=== PATIENT | female | born 1995 | race Caucasian/White ===

== ENCOUNTER 2018-08-14 07:52 | Emergency (ER) | payer MEDICAID ==
[~2018-08-14] VITALS: Ht 154.9 cm; Wt 77.0 kg
[2018-08-14 07:54] VITALS: BP 139/78
[2018-08-14 08:36] LABS: CLARITY URINE CLEAR (CLEAR); COLOR URINE YELLOW (YELLOW); KETONES URINE 1+ (NEGATIVE); LEUKOCYTE ESTERASE URINE TRACE (NEGATIVE); NITRITE URINE POSITIVE (NEGATIVE); OCCULT BLOOD URINE NEGATIVE (NEGATIVE); PROTEIN URINE NEGATIVE (NEGATIVE); SPECIFIC GRAVITY URINE 1.042 (1.005-1.030); UROBILINOGEN URINE 0.2 E.U./dL (0.2-1.0)
== END 2018-08-14 09:20 | disposition home or self-care (01) ==
LOC: ER 07:52
DX: R30.0 Dysuria (principal)
CPT/HCPCS: 81025; 99283

== ENCOUNTER 2019-04-30 16:26 | Emergency (ER) | payer MEDICAID, OTHER ==
[~2019-04-30] VITALS: Ht 157.5 cm; Wt 82.0 kg
[2019-04-30 16:58] VITALS: BP 133/79
[2019-04-30 18:21] LABS: CLARITY URINE CLOUDY (CLEAR); COLOR URINE YELLOW (YELLOW); KETONES URINE NEGATIVE (NEGATIVE); LEUKOCYTE ESTERASE URINE TRACE (NEGATIVE); NITRITE URINE POSITIVE (NEGATIVE); OCCULT BLOOD URINE NEGATIVE (NEGATIVE); PROTEIN URINE NEGATIVE (NEGATIVE); SPECIFIC GRAVITY URINE 1.022 (1.005-1.030); UROBILINOGEN URINE 0.2 E.U./dL (0.2-1.0)
[2019-05-03 04:09] LABS: CHLAMYDIA TRACHOMATIS NAA Negative (Negative); NEISSERIA GONORRHOEAE NAA Negative (Negative)
== END 2019-04-30 18:56 | disposition home or self-care (01) ==
LOC: ER 16:26
DX: N89.8 Other specified noninflammatory disorders of vagina (principal); R20.8 Other disturbances of skin sensation; E11.9 Type 2 diabetes mellitus without complications
CPT/HCPCS: 81003; 81025; 87210; 87491; 87591; 99283

== ENCOUNTER 2022-03-10 00:48 | Emergency (ER) | payer OTHER ==
[~2022-03-10] VITALS: Ht 154.9 cm; Wt 89.1 kg
[2022-03-10 06:45] LABS: CHLORIDE 97 mEq/L (98-107)
[2022-03-10 06:46] LABS: HCG SCREEN NEGATIVE
[2022-03-10 06:47] LABS: BASOPHILS % 0.3 % (0.0-2.0); EOSINOPHILS % 0.2 % (0.0-5.0); HEMATOCRIT. 38.3 % (36.0-48.0); HEMOGLOBIN. 12.8 g/dL (12.0-16.0); LYMPHOCYTES % 17.2 % (20.0-50.0); MEAN CORPUSCULAR HEMOGLOBIN 28.8 pg (28.0-32.0); MEAN CORPUSCULAR VOLUME 85.9 fL (81.0-99.0); MEAN PLATELET VOLUME 9.6 fl (7.4-10.4); MONOCYTES % 11.2 % (2.0-8.0); NEUTROPHILS % 71.1 % (40.0-76.0); PLATELET 231 x1000/uL (130-400); RED BLOOD CELL COUNT 4.46 mill/uL (4.2-5.4); RED CELL DISTRIBUTION WIDTH 13.6 % (11.6-14.6)
[2022-03-10 06:49] LABS: PROTHROMBIN TIME 10.8 sec (9.6-11.0)
[2022-03-10] MEDS ORDERED: TOPUD PO (07:11)
[2022-03-10 07:25] VITALS: BP 124/78
[2022-03-10 08:06] LABS: CLARITY URINE CLOUDY (CLEAR); COLOR URINE YELLOW (YELLOW); KETONES URINE 4+ (NEGATIVE); LEUKOCYTE ESTERASE URINE TRACE (NEGATIVE); NITRITE URINE POSITIVE (NEGATIVE); OCCULT BLOOD URINE 3+ (NEGATIVE); PH URINE 5.5 (4.5-8.0); PROTEIN URINE 1+ (NEGATIVE); SPECIFIC GRAVITY URINE 1.036 (1.005-1.030); UROBILINOGEN URINE 0.2 E.U./dL (0.2-1.0)
[2022-03-10] MEDS ORDERED: NITR100C PO (11:26)
== END 2022-03-10 07:38 | disposition home or self-care (01) ==
LOC: ER 00:48
DX: R10.11 Right upper quadrant pain (principal); B34.9 Viral infection, unspecified; N39.0 Urinary tract infection, site not specified; Z20.822 Contact with and (suspected) exposure to COVID-19
CPT/HCPCS: 36415; 76705; 80053; 81003; 83690; 84703; 85025; 85610; 87077; 87086; 87186; 87426; 87804; 99284; C9803